=== PATIENT | female | born 1955 | race Caucasian/White ===

== ENCOUNTER 2020-01-19 16:33 | Emergency (ER) | payer BC ==
[2020-01-19] MEDS ORDERED: IBUPROFEN 200 MG TAB PO ONE (18:25)
--- NOTE | 2020-01-19 18:35 | EDPHYS ---
Physician Documentation [facility] Name: Salma Hussein Age: 64 yrs Sex: Female : 1955 Arrival Date: 01/19/2020 Time: 16:45 Bed 8 Private MD: ED Physician Shaheed Nair HPI: 01/18 17:20 This 64 yrs old Female presents to ER via Ambulatory with complaints of Knee pm1 Pain. 17:20 The patient presents with pain, swelling. The complaints affect the posterior aspect of pm1 left knee and left knee. Context: The problem was sustained at home, the patient can fully bear weight, the patient is able to ambulate, Problem is a result from a previous injury: No. Onset: The symptoms/episode began/occurred 2 day(s) ago. Modifying factors: The symptoms are alleviated by elevating leg, the symptoms are aggravated by weight bearing, bending knee. Associated signs and symptoms: Pertinent negatives calf tenderness, fever, numbness, tingling. Treatment prior to arrival includes: no previous treatment, Patient applied heat and cold treatment to knee yesterday. The patient has experienced similar episodes in the past, several times. The patient has not recently seen a physician. Historical: - Allergies: 16:48 Codeine (Itching); ll1 16:48 Sulfa (Sulfonamide Antibiotics) (Itching); ll1 - PSHx: 16:48 ; Hysterectomy; foot; neck; back; Bladder suspension; tumor removal from abd; ll1 bladder; - Immunization history:: Flu vaccine is not up to date. - Social history:: Smoking status: Patient reports the use of cigarette tobacco products, smokes one-half pack cigarettes per day. ROS: 17:20 Constitutional: Negative for fever, chills, and weight loss. pm1 17:20 Skin: Negative for injury, rash, and discoloration. 17:20 MS/extremity: Positive for pain, swelling, of the posterior aspect of left knee and left knee, Negative for decreased range of motion, deformity. 17:20 Neuro: Negative for numbness, tingling. 17:20 All other systems are negative. Exam: 17:20 Constitutional: This is a well developed, well nourished patient who is awake, alert, pm1 and in no acute distress. Head/Face: Normocephalic, atraumatic. Skin: Warm, dry with normal turgor. Normal color with no rashes, no lesions, and no evidence of cellulitis. 17:20 Musculoskeletal/extremity: Extremities: grossly normal except: Tenderness to posterior aspect of left knee and above patella on anterior aspect of left knee. Negative valgus, varus, anterior drawer tests. Negative Kaitlin. Mild swelling present proximally to left patella. 17:20 Neuro: Exam negative for acute changes, Orientation: is normal, Mentation: is normal, Motor: is normal, moves all fours. Vital Signs: 16:46 BP 138 / 83; Pulse 105; Resp 17; Temp 98.3; Pulse Ox 98% ; Weight 58.97 kg; Height 5 ll1 ft. 7 in. (170.18 cm); Pain 8/10; 17:01 BP 146 / 89; Pulse 96; Resp 18; Pulse Ox 96% on R/A; Pain 8/10; vg1 17:30 BP 114 / 86; Pulse 90; Resp 16; Pulse Ox 99% on R/A; vg1 18:00 BP 120 / 77; Pulse 90; Resp 12; Pulse Ox 96% on R/A; Pain 8/10; vg1 18:30 BP 121 / 72; Pulse 86; Resp 14; Pulse Ox 98% on R/A; vg1 16:46 Body Mass Index 20.36 (58.97 kg, 170.18 cm) ll1 MDM: 17:13 Patient medically screened. pm1 18:32 Data reviewed: vital signs. Data interpreted: Pulse oximetry: on room air is 99 %. pm1 Interpretation: normal. 18:33 Counseling: I had a detailed discussion with the patient and/or guardian regarding: the pm1 historical points, exam findings, and any diagnostic results supporting the discharge/admit diagnosis, radiology results, the need for outpatient follow up, a orthopedic surgeon, to return to the emergency department if symptoms worsen or persist or if there are any questions or concerns that arise at home. 18:48 ED course: Patient is planning to go to work tomorrow. Patient offered crutches and pm1 knee immobilizer, but refused. Patient said she has crutches at home and believes she still has an immobilizer for the last time she was here for the same complaint. Plans to wear her OTC knee brace and follow up with orthopedics. 01/18 17:19 Order name: Knee Left 3 View XRAY pm1 01/18 17:18 Order name: Ice pack; Complete Time: 17:18 vg1 Administered Medications: 18:17 Drug: Ibuprofen 600 mg Route: PO; vg1 18:44 Follow up: Response: No adverse reaction; Pain is unchanged, physician notified vg1 Disposition: 01/19/20 18:34 Discharged to Home. Impression: Pain in left knee. - Condition is Stable. - Discharge Instructions: Joint Pain, Knee Pain. - Prescriptions for Mobic 7.5 mg Oral Tablet - take 1 tablet by ORAL route once daily take with food; 20 tablet. - Medication Reconciliation Form, Thank You Letter, Antibiotic Education, Prescription Opioid Use form. - Follow up: Emergency Department; When: As needed; Reason: Worsening of condition. Follow up: Private Physician; When: 2 - 3 days; Reason: Recheck today's complaints, Continuance of care, Re-evaluation by your physician. - Problem is new. - Symptoms have improved. Signatures: Dispatcher [employer] EDMS Alan Ruff, OJSEE COMMERCIAL DIVER pm1 Nely Jasso, RN RN vg1 Stalin Anderson RN RN ll1 Corrections: (The following items were deleted from the chart) 18:56 18:34 01/19/2020 18:34 Discharged to Home. Impression: Pain in left knee. Condition is vg1 Stable. Forms are Medication Reconciliation Form, Thank You Letter, Antibiotic Education, Prescription Opioid Use. Follow up: Emergency Department; When: As needed; Reason: Worsening of condition. Follow up: Private Physician; When: 2 - 3 days; Reason: Recheck today's complaints, Continuance of care, Re-evaluation by your physician. Problem is new. Symptoms have improved. pm1
--- NOTE | 2020-01-19 18:35 | ER ---
Nurse's Notes [facility] Name: Salma Hussein Age: 64 yrs Sex: Female : 1955 Arrival Date: 01/19/2020 Time: 16:45 Bed 8 Private MD: Diagnosis: Pain in left knee Presentation: 01/18 16:46 Chief complaint: Patient states: Left knee pain for 2 days with swelling. No known ll1 trauma. States she had the same knee drained here about 6 years ago. Coronavirus screen: Client denies travel out of the [place] in the last 14 days. At this time, the client does not indicate any symptoms associated with coronavirus-19. Ebola Screen: Patient denies travel to an Ebola-affected area in the 21 days before illness onset. Initial Sepsis Screen: Does the patient meet any 2 criteria? HR > 90 bpm. No. Patient's initial sepsis screen is negative. Does the patient have a suspected source of infection? Yes: Bone or joint infection. Risk Assessment: Do you want to hurt yourself or someone else? Patient reports no desire to harm self or others. Onset of symptoms was January 17, 2020. 16:46 Method Of Arrival: Ambulatory ll1 16:46 Acuity: PAUL 3 ll1 Triage Assessment: 18:56 General: Behavior is calm, cooperative. 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 - Social history:: Smoking status: Patient reports the use of cigarette tobacco products, smokes one-half pack cigarettes per day. Screenin:16 Abuse screen: Denies threats or abuse. Nutritional screening: No deficits noted. vg1 Tuberculosis screening: No symptoms or risk factors identified. Fall Risk Gait- Impaired (20 pts.). Total Parra Fall Scale indicates No Risk (0-24 pts). Assessment: 17:00 General: Appears in no apparent distress. well groomed. Pain: Complains of pain in vg1 posterior aspect of left knee that radiates up to the left hamstring Pain currently is 8 out of 10 on a pain scale. Neuro: Level of Consciousness is awake, alert, obeys commands, Oriented to person, place, time, situation. Cardiovascular: Capillary refill < 3 seconds in bilateral toes Pulses are absent in right dorsalis pedis artery and left dorsalis pedis artery. Respiratory: Airway is patent Respiratory effort is even, unlabored, Respiratory pattern is regular, symmetrical. GI: No signs and/or symptoms were reported involving the gastrointestinal system. : No signs and/or symptoms were reported regarding the genitourinary system. EENT: No signs and/or symptoms were reported regarding the EENT system. Derm: Skin is pink, warm \T\ dry. Musculoskeletal: Reports Patient reports hurts to bend the left knee and hurts to walk. 17:18 Reassessment: Verbal orders received from Alan TRIPP to place ice pack to left knee. vg1 18:00 Reassessment: Patient appears in no apparent distress at this time. No changes from vg1 previously documented assessment. Patient is alert, oriented x 3, equal unlabored respirations, skin warm/dry/pink. Patient stated the ice packed helped a bit with the pain, rated pain 8/10. Patient asked for some Ibuprofen. Notified Alan TRIPP. Received verbal order to give Ibuprofen 600mg PO. 18:55 Reassessment: Patient appears in no apparent distress at this time. No changes from vg1 previously documented assessment. Patient is alert, oriented x 3, equal unlabored respirations, skin warm/dry/pink. Vital Signs: 16:46 BP 138 / 83; Pulse 105; Resp 17; Temp 98.3; Pulse Ox 98% ; Weight 58.97 kg; Height 5 ll1 ft. 7 in. (170.18 cm); Pain 8/10; 17:01 BP 146 / 89; Pulse 96; Resp 18; Pulse Ox 96% on R/A; Pain 8/10; vg1 17:30 BP 114 / 86; Pulse 90; Resp 16; Pulse Ox 99% on R/A; vg1 18:00 BP 120 / 77; Pulse 90; Resp 12; Pulse Ox 96% on R/A; Pain 8/10; vg1 18:30 BP 121 / 72; Pulse 86; Resp 14; Pulse Ox 98% on R/A; vg1 16:46 Body Mass Index 20.36 (58.97 kg, 170.18 cm) ll1 ED Course: 16:45 Patient arrived in ED. ll1 16:47 Triage completed. ll1 16:48 Arm band placed on Patient placed in an exam room, on a stretcher. ll1 16:53 Alan Ruff NP is PHCP. pm1 16:53 Shaheed Nair MD is Attending Physician. pm1 16:57 Nely Jasso, RN is Primary Nurse. ph 17:05 Patient has correct armband on for positive identification. Placed in gown. Bed in low vg1 position. Call light in reach. Adult w/ patient. Pulse ox on. NIBP on. Door closed. Warm blanket given. Pillow given. 17:14 Nurse Practitioner and/or Physician Player Development Manager to see patient. vg1 17:36 Xray at bedside. vg1 17:40 Xray left patients room. vg1 17:46 Knee Left 3 View XRAY In Process Unspecified. EDMS 18:56 No provider procedures requiring assistance completed. Patient did not have IV access vg1 during this emergency room visit. Administered Medications: 18:17 Drug: Ibuprofen 600 mg Route: PO; vg1 18:44 Follow up: Response: No adverse reaction; Pain is unchanged, physician notified vg1 Outcome: 18:34 Discharge ordered by MD. pm1 18:56 Patient left the ED. vg1 18:57 Discharged to home ambulatory, with family. vg1 18:57 Condition: stable 18:57 Discharge instructions given to patient, Instructed on discharge instructions, follow up and referral plans. medication usage, Demonstrated understanding of instructions, follow-up care, medications, Prescriptions given X 1. Signatures: Dispatcher [employer] EDND Chiqui Schwab, RN RN Alan Ruff, JOSEE STATISTICIAN THEORETICAL pm1 Nely Jasso, RN RN vg1 Stalin Anderson RN RN [facility]
[2020-01-19 19:04] VITALS: TEMP 98.3
[2020-01-19 19:10] VITALS: BP 121/72; O2SAT 98
--- NOTE | 2020-01-19 19:11 | RAD REPORT ---
EXAM DESCRIPTION: RAD - Knee Left 3 View - 01/19/2020 5:46 pm CLINICAL HISTORY: Pain;Swelling COMPARISON: Knee Left 3 View dated 05/06/2016 FINDINGS: No fracture, dislocation or periosteal reaction.Small a moderate joint effusion is present similar to the prior study. Small spur is present at the quadriceps attachment to the patella. Chond rocalcinosis changes are again noted. This has progressed from 2017. No joint space narrowing. No sof t tissue abnormality. IMPRESSION: Left knee joint effusion with progressive chondrocalcinosis. No acute bone finding. Clinical concerns for internal derangement or occult bony injury could be further assessed with MR im aging.
== END 2020-01-19 18:56 | disposition home or self-care (01) ==
LOC: ER 16:33
DX: M25.562 Pain in left knee (principal); F17.210 Nicotine dependence, cigarettes, uncomplicated; Z88.2 Allergy status to sulfonamides; Z88.5 Allergy status to narcotic agent
CPT/HCPCS: 99284